=== PATIENT | male | born 1950 | race Caucasian/White ===

== ENCOUNTER → 2018-09-28 13:00 | Outpatient (CLI) | payer OTHER, SELFPAY ==
--- NOTE | 2018-09-28 | DI.RAD.S_ITS ---
PROCEDURE: XR SACRUM COCCYX MIN 2V INDICATIONS: Sacrococcygeal disorders, not elsewhere classified TECHNIQUE: 3 views of the sacrum and coccyx acquired. COMPARISON: None. FINDINGS: Bones: No fractures or dislocations. Mild symmetric SI joint degenerative changes. Moderate degenerative disc and facet disease involving the imaged inferior lumbar spine. Soft tissues: Visualized bowel gas pattern is normal. Multiple pelvic phleboliths. IMPRESSION: Mild symmetric sacroiliac joint degenerative changes with moderate degenerative changes of the imaged lower lumbar spine. Dictated by: Isaac Bassett [facility] Interpreted: Cirilo Chahal MD on 09/28/2018 at 14:16 Approved by: Cirilo Chahal M.D. on 09/28/2018 at 21:33
== END ==
PROVIDERS: PCP Family Medicine; Visit Provider Family Medicine
DX: M53.3 Sacrococcygeal disorders, not elsewhere classified (principal); M47.818 Spondylosis without myelopathy or radiculopathy, sacral and sacrococcygeal region; M47.816 Spondylosis without myelopathy or radiculopathy, lumbar region
CPT/HCPCS: 72220

== ENCOUNTER → 2020-10-08 09:01 | Outpatient (CLI) | payer MEDICARE, OTHER, SELFPAY ==
--- NOTE | 2020-10-08 | DI.RAD.S_ITS ---
PROCEDURE: XR LUMBAR SPINE 2-3V INDICATIONS: LUMBAR PAIN WITH RADIATION DOWN RIGHT LEG TECHNIQUE: 3 views of the lumbar spine were acquired. COMPARISON: None. FINDINGS: Bones: No fracture. Levoscoliosis. Multilevel degenerative endplate sclerosis and spurring. Diffuse facet arthropathy. Grade 1 anterolisthesis of L4 on L5. Severe narrowing of the L3-L4 disc space. Mild narrowing of the L4-L5 disc space. Soft tissues: Overlying bowel gas pattern is normal. No suspicious soft tissue calcifications. IMPRESSION: Severe multilevel lumbar spondylosis and facet arthropathy Levoscoliosis. Grade 1 anterolisthesis of L4 on L5. Dictated by: Stan Zaragoza M.D. on 10/08/2020 at 13:21 Approved by: Stan Zaragoza M.D. on 10/08/2020 at 13:23
--- NOTE | 2020-10-08 | DI.MRI.S_ITS ---
PROCEDURE: MR LUMBAR SPINE WO/W CON INDICATIONS: LOW BACK PAIN TECHNIQUE: Noncontrast sagittal T1 spin echo and T2 fast spin echo, sagittal STIR, axial T1 and T2 fast spin echo through the lumbar spine. In cases with scoliosis, additional coronal T2 fast spin echo may be performed. After the administration of contrast, sagittal and axial T1 spin echo with fat saturation through the lumbar spine. COMPARISON: Non FINDINGS: Image quality: Excellent. Alignment and curvature: No plain films are available for comparison, for numbering purposes. Thus, for the purposes of this examination, 5 lumbar type vertebral bodies will be presumed, as denoted on the montage panel. This should be confirmed and correlated with plain films, prior to any lumbar spinal intervention. There is mild grade 1 retrolisthesis of L1 on L2, L2 on L3, and L3 on L4. Mild grade 1 anterolisthesis of L4 on L5. Mild grade 1 retrolisthesis of L5 on S1. Mild diffuse leftward curvature of the lower lumbar spine. Marrow: Marrow is of normal overall signal. No acute vertebral body compression fractures. No suspicious marrow enhancement. Mild reactive signal within the endplates adjacent to the T12-L1, L1-L2, L2-L3, L3-L4, and L4-L5 intervertebral discs. Spinal cord: Conus medullaris terminates at the mid L1 level. Visualized spinal cord demonstrates normal signal, without suspicious enhancement. Paraspinous soft tissues: No paravertebral masses or abnormal enhancement. L1-L2: Mild disc desiccation and diffuse disc bulge. Mild facet and ligamentum flavum hypertrophy. Mild epidural lipomatosis. Mild canal stenosis. Moderate subarticular foraminal stenosis bilaterally. L2-L3: Moderate disc height loss and desiccation. Moderate diffuse disc bulge. Mild facet and ligamentum flavum hypertrophy. Mild epidural lipomatosis. Severe canal stenosis. Moderate bilateral foraminal stenosis. L3-L4: Moderate disc height loss and desiccation. Moderate diffuse disc bulge. Mild facet and ligamentum flavum hypertrophy. Moderate epidural lipomatosis. Severe canal stenosis. Moderate bilateral foraminal stenosis. L4-L5: Mild disc height loss. Moderate disc desiccation. Moderate diffuse disc bulge with superimposed right paracentral disc extrusion which extends superiorly within the lateral recess. Moderate facet and ligamentum flavum hypertrophy. Mild epidural lipomatosis. Severe canal stenosis. Severe right and moderate left foraminal stenosis. Right L4 nerve root compression. L5-S1: Mild disc height loss and desiccation. Mild diffuse disc bulge. Mild bilateral facet hypertrophy. Mild canal stenosis. Moderate left and mild right foraminal stenosis. IMPRESSION: 1. Multilevel degenerative disc and facet disease, as well as ligamentum flavum hypertrophy and epidural lipomatosis. 2. Multilevel canal stenoses, worst at L2-L3, L3-L4, and L4-L5, where there are severe canal stenosis. 3. Multilevel foraminal stenosis, worst at L4-L5 on the right where there is associated intraforaminal nerve root compression. 4. 5 lumbar type vertebral bodies were presumed for the current report. Plain films of the lumbar spine are recommended for confirmation, prior to any lumbar spinal intervention. Dictated by: Radha Norman M.D. on 10/08/2020 at 13:28 Approved by: Radha Norman M.D. on 10/08/2020 at 13:32
== END ==
PROVIDERS: PCP Family Medicine; Referring Provider Physician Assistant; Visit Provider Physician Assistant
DX: M54.5 Low back pain (principal); M51.36 Other intervertebral disc degeneration, lumbar region; M51.37 Other intervertebral disc degeneration, lumbosacral region; M48.061 Spinal stenosis, lumbar region without neurogenic claudication; M48.07 Spinal stenosis, lumbosacral region; E88.2 Lipomatosis, not elsewhere classified
CPT/HCPCS: 72100; 72158

== ENCOUNTER → 2021-01-31 10:31 | Outpatient (CLI) | payer MEDICARE, OTHER, SELFPAY | PROVIDERS: PCP Family Medicine; Visit Provider Physician Assistant Medical | DX: N39.0 Urinary tract infection, site not specified (principal) | CPT/HCPCS: 87086 ==

== ENCOUNTER → 2021-05-27 11:15 | Outpatient (CLI) | payer MEDICARE, OTHER, SELFPAY ==
[2021-05-27 20:20] LABS: COVID19 - ORCAS (NP or Nasal) Negative (Negative)
== END ==
PROVIDERS: PCP Family Medicine; Visit Provider Physician Assistant
DX: Z20.822 Contact with and (suspected) exposure to COVID-19 (principal)
CPT/HCPCS: C9803; U0003

== ENCOUNTER → 2021-06-06 15:29 | Outpatient (CLI) | payer MEDICARE, OTHER, SELFPAY ==
--- NOTE | 2021-06-06 15:32 | DI.MRI.S_ITS ---
PROCEDURE: MR LUMBAR SPINE WO CON INDICATIONS: RADICULOPATHY,LUMBAR REGION TECHNIQUE: Noncontrast sagittal T1 spin echo and T2 fast echo, sagittal STIR, axial T1 and T2 fast spin echo through the lumbar spine. In cases with scoliosis, additional coronal T2 fast spin echo may be performed. COMPARISON: None. FINDINGS: Image quality: Excellent. Alignment and Curvature: Convex left thoracolumbar scoliosis noted. Bone Marrow: Mild degenerative endplate changes noted particularly at L3-4 Spinal Cord: Conus medullaris terminates at the L1 level. Visualized cord demonstrates normal signal and size. Paraspinous Soft Tissues: No paravertebral masses. T12-L1: Mild disc height loss and circumferential disc bulge without central or foraminal stenosis. L1-L2: Disc height is preserved. Hypertrophic facet joints present. No central or foraminal stenosis. L2-L3: Mild disc height loss and circumferential disc bulge combines with ligamentum flavum laxity to result in moderate central and moderate bilateral foraminal stenosis greater on the right. L3-L4: Moderate disc height loss and degenerative endplate changes with circumferential disc bulge, hypertrophic facet joints and ligamentum flavum laxity combined result in moderate central stenosis, narrowing the AP diameter of the thecal sac to 7 mm. Moderate bilateral foraminal stenosis greater on the right. L4-L5: Mild disc height loss and circumferential disc bulge combines with ligamentum flavum laxity and hypertrophic facet joints result in severe central stenosis narrowing the AP diameter of the thecal sac to 6 mm. There is moderate left and severe right foraminal stenosis. L5-S1: Disc height is preserved. Mild facet hypertrophy. Moderate left and no right foraminal stenosis present. IMPRESSION: 1. Multilevel degenerative disc disease and arthropathy resulting in varying degrees of central and foraminal stenosis including severe central and right foraminal stenosis at L4-5. 2. Degenerative thoracolumbar levoscoliosis Approved by: Rojelio Gray M.D. on 06/06/2021 at 17:21
== END ==
PROVIDERS: PCP Family Medicine; Referring Provider Physician Assistant; Visit Provider Physician Assistant
DX: M51.16 Intervertebral disc disorders with radiculopathy, lumbar region (principal); M47.26 Other spondylosis with radiculopathy, lumbar region; M48.061 Spinal stenosis, lumbar region without neurogenic claudication; M41.85 Other forms of scoliosis, thoracolumbar region
CPT/HCPCS: 72148

== ENCOUNTER → 2021-09-10 13:24 | Outpatient (CLI) | payer MEDICARE, OTHER, SELFPAY ==
[2021-09-10 19:58] LABS: Prostate Specific Antigen 3.46 ng/mL (0.10-4.00)
== END ==
PROVIDERS: PCP Family Medicine; Visit Provider Specialist
DX: R97.20 Elevated prostate specific antigen [PSA] (principal); R39.9 Unspecified symptoms and signs involving the genitourinary system
CPT/HCPCS: 84153

== ENCOUNTER → 2022-01-08 08:02 | Outpatient (CLI) | payer MEDICARE, OTHER, SELFPAY ==
[2022-01-08 19:02] LABS: Add Manual Diff / Slide Review NO; Basophils Absolute Auto 0 /uL (0-100); Basophils Percent Auto 0.6 % (0-2); Eosinophils Absolute Auto 300 /uL (0-450); Eosinophils Percent Auto 3.8 % (2-4); Hematocrit 40.4 % (41-53); Hemoglobin 13.8 g/dL (13.5-17.5); Lymphocytes Absolute Auto 1600 /uL (1100-4500); Lymphocytes Percent Auto 23.3 % (25-40); Mean Corpuscular HGB Conc 34.2 % (30-36); Mean Corpuscular Hemoglobin 31.7 PG (26-34); Mean Corpuscular Volume 92.8 fL (80-100); Monocytes Absolute Auto 700 /uL (0-900); Monocytes Percent Auto 10.1 % (3-14); Neutrophils Absolute Auto 4100 /uL (1500-7000); Neutrophils Percent Auto 62.2 % (50-75); Platelet Count 220 X10^3/uL (150-400); Red Blood Cell Count 4.35 X10^6/uL (4.5-5.9); Red Cell Distribution Width 13.1 % (11.6-14.8); White Blood Cell Count 6.7 X10^3/uL (4.5-11.0)
[2022-01-08 19:16] LABS: Alanine Aminotransferase 20 IU/L (<50); Albumin 3.7 g/dL (3.5-5.0); Albumin Globulin Ratio 1.3 (1.0-2.8); Alkaline Phosphatase 79 U/L (38-126); Aspartate Aminotransferase 30 IU/L (17-59); BUN Creatinine Ratio 19.6 (6-22); Bilirubin Total 0.6 mg/dL (0.2-1.3); Blood Urea Nitrogen 22 mg/dL (9-20); Calcium 8.4 mg/dL (8.4-10.2); Carbon Dioxide 29 mmol/L (22-32); Chloride 106 mmol/L (98-107); Cholesterol 182 mg/dL (140-199); Estimated Glomerular Filt Rate > 60.0 mL/min (>60); Globulin 2.8 g/dL (1.7-4.1); Glucose 112 mg/dL (80-110); HDL Cholesterol 45 mg/dL (40-60); HEMOLYSIS < 15 (0-50); LDL Cholesterol Calculated 122 mg/dL (<100); Potassium 4.2 mmol/L (3.4-5.1); Sodium 140 mmol/L (137-145); Total Protein 6.5 g/dL (6.3-8.2); Triglycerides 73 mg/dL (35-150)
== END ==
PROVIDERS: PCP Family Medicine; Visit Provider Family Medicine
DX: R31.21 Asymptomatic microscopic hematuria (principal); N52.9 Male erectile dysfunction, unspecified; I10 Essential (primary) hypertension; Z00.00 Encounter for general adult medical examination without abnormal findings
CPT/HCPCS: 80053; 80061; 85025

== ENCOUNTER 2022-02-17 18:41 | Observation (INO) | payer MEDICARE, OTHER, SELFPAY ==
[2022-02-17 18:49] VITALS: BP 162/83; PULSE 82; RESP 18; TEMP 36.6; O2SAT 99; BMI 29.9
[2022-02-17 20:00] LABS: COVID19 -Nasal RAPID Negative (Negative)
[2022-02-17] MEDS: HYDROCODONE/ACET 5/325 TABLET 1 TAB PO (21:04)
--- NOTE | 2022-02-17 21:33 | ED_ITS ---
HPI - Extremity Injury (Lower) General Chief Complaint: Extremity Injury, Lower Stated Complaint: RIGHT FOOT INJURY Time Seen by Provider: 02/17/22 20:34 Source: patient and family Mode of arrival: Wheelchair Limitations: no limitations History of Present Illness HPI Narrative: This is a 71-year-old man on amlodipine and Flomax who presents for fracture of the 1st metatarsal with wound on his right foot. Patient states they were moving a granite step when it fell to the ground. Patient jumped out of the way but it rolled onto his foot. Likely weighs up to 1000lbs. Patient states tetanus should be up-to-date in the last 5 years. He denies any numbness or tingling. He has pain at the site. He had a shot for something to relax him at the [facility]. They did an x-ray there and referred him here. Patient has continued to have oozing and bleeding from the site. He has not any blood thinners. Related Data Previous Rx's Medication Instructions Recorded amlodipine 2.5 mg tablet 2.5 mg PO BID #180 tab 12/23/21 tamsulosin 0.4 mg capsule 0.4 mg PO BEDTIME #90 cap 12/23/21 Allergies Allergy/AdvReac Type Severity Reaction Status Date / Time No Known Drug Allergies Allergy Verified 02/17/22 18:54 Review of Systems Review of Systems ROS Unobtainable: All systems reviewed & are unremarkable except as noted in HPI and below Patient History Medical History BPH w urinary obs/LUTS Chicken pox Elevated PSA Encounter for well adult exam without abnormal findings Erectile dysfunction Foot trauma Family History Father Congestive heart failure Mother Stroke Social History household members: spouse and children Smoking Status: Never smoker alcohol intake: never Smoking Status: Never smoker alcohol intake frequency: 0-2 drinks per day Substance Use Type: does not use Exam Narrative Exam Narrative: GENERAL: Alert and oriented x three, male in moderate distress. HEENT: Head normocephalic, atraumatic, EOMI, pupils reactive, face symmetric, moist mucous membranes NECK: Supple, full range of motion CARDIOVASCULAR: Regular rate and rhythm without murmurs, rubs or gallops. RESPIRATORY: Breath sounds equal bilaterally, no wheezes rales or rhonchi. ABDOMEN: Soft, nontender. Normoactive bowel sounds all 4 quadrants. No guarding or rebound, rigidity, no mass EXTREMITIES: Patient has a on the dorsum of the right foot with two 0.5cm puncture bravo that are actively bleeding when pressure is removed, no arterial or pulsatile bleeding appreciated. Stops easily with direct light pressure. Patient has significant hematoma over the dorsum of the foot. He has sensation to light touch in all 5 toes with cap refill less than 2 seconds. Patient has sensation throughout the foot otherwise. Able to flex and extend toes although uncomfortable. Normal range of motion of upper leg and at knee, no clubbing or edema of upper leg.. Neurovascularly intact NEUROLOGICAL: Cranial nerves II through XII grossly intact. Moving all extremities SKIN: Warm, dry, no petechiae, no rashes or lesions otherwise noted. Initial Vital Signs Initial Vital Signs: Vital Signs Temperature 97.9 F 02/17/22 18:49 Pulse Rate 82 02/17/22 18:49 Respiratory Rate 18 02/17/22 18:49 Blood Pressure 162/83 H 02/17/22 18:49 Pulse Oximetry 99 02/17/22 18:49 Course Orders Ordered: ED Orders 02/17/22 21:24 CMP [Comprehensive Metabolic Panel] Stat Complete Blood Count AUTO DIFF Stat 02/17/22 22:08 COVID19 -Nasal RAPID/Pre-Proc Stat Acetaminophen (Acetaminophen 325 Mg Tablet) 975 mg PO TID MELONIE Sodium Chloride (Normal Saline 0.9%) 1,000 mls @ 125 mls/hr IV CONT MELONIE Last Admin: 02/18/22 01:36 Dose: 125 mls/hr Documented by: MARGIE Morphine Sulfate (Morphine 2 Mg/Ml Inj) 2 mg IV Q2HR PRN PRN Reason: Pain, Moderate (4-6) Last Admin: 02/18/22 02:17 Dose: 2 mg Documented by: Admin: 02/17/22 23:26 Dose: 2 mg Documented by: YO Ondansetron HCl (Ondansetron 4 Mg/2 Ml Inj) 4 mg IV Q6HR PRN PRN Reason: Nausea And Vomiting Ondansetron HCl (Ondansetron 4 Mg Odt) 4 mg SL Q4HR PRN PRN Reason: Nausea Oxycodone HCl (Oxycodone Ir 5 Mg Tablet) 10 mg PO Q3HR PRN PRN Reason: Pain, Severe (7-10) Last Admin: 02/18/22 01:36 Dose: 10 mg Documented by: MARGIE Discontinued Medications Hydrocodone Bitart/Acetaminophen (Hydrocodone/Acet 5/325 Tablet) 1 tab PO NOW ONE Stop: 02/17/22 21:00 Last Admin: 02/17/22 21:04 Dose: 1 tab Documented by: SHERWIN Cefazolin Sodium/Dextrose (Cefazolin 2 Gm/20 Ml Syringe) 2 gm IV NOW ONE Stop: 02/17/22 22:09 Last Admin: 02/17/22 22:50 Dose: 2 gm Documented by: YO Miles Consultation #1: Dr. Sosa, discussed patient has small wound but there is an obvious fragment on his imaging I am unable to palpated at the wound but seems to be at that site. He does have a fracture of the 1st metatarsal which is displaced. It is open fracture secondary to his wound. Patient given Ancef 2 g, tetanus up-to-date per patient and after speaking with Dr. Rodgers plan for OR in the morning. Discussed patient does have a large hematoma but skin appears intact and viable otherwise. Vital Signs Vital signs: Vital Signs - 8 hr 02/17/22 18:49 Temperature 97.9 F Pulse Rate 82 Respiratory Rate 18 Blood Pressure 162/83 H Pulse Oximetry 99 MDM - Extremity Injury (Lower) Lab Data Result diagrams: 02/17/22 21:24 02/17/22 21:24 Labs: Lab Results 02/17/22 02/17/22 02/17/22 Range/Units 19:39 21:24 21:24 WBC 9.5 (4.5-11.0) X10^3/uL RBC 4.44 L (4.5-5.9) X10^6/uL Hgb 14.1 (13.5-17.5) g/dL Hct 41.2 (41-53) % MCV 92.7 (80-100) fL MCH 31.7 (26-34) PG MCHC 34.1 (30-36) % RDW 13.0 (11.6-14.8) % Plt Count 227 (150-400) X10^3/uL Neut % (Auto) 70.0 (50-75) % Lymph % (Auto) 19.2 L (25-40) % [place] % (Auto) 8.2 (3-14) % Eos % (Auto) 1.9 L (2-4) % Baso % (Auto) 0.7 (0-2) % Neut # (Auto) 6700 (4678-4611) /uL Lymph # (Auto) 1800 (6096-0496) /uL [place] # (Auto) 800 (0-900) /uL Eos # (Auto) 200 (0-450) /uL Baso # (Auto) 100 (0-100) /uL Sodium 142 (137-145) mmol/L Potassium 3.8 (3.4-5.1) mmol/L Chloride 107 (98-107) mmol/L Carbon Dioxide 28 (22-32) mmol/L BUN 28 H (9-20) mg/dL Creatinine 1.08 (0.66-1.25) mg/dL Estimated GFR > 60 (>60) mL/min BUN/Creatinine Ratio 25.9 H (6-22) Glucose 96 (80-110) mg/dL Calcium 8.4 (8.4-10.2) mg/dL Total Bilirubin 0.5 (0.2-1.3) mg/dL AST 28 (17-59) IU/L ALT 16 (<50) IU/L Alkaline Phosphatase 73 (38-126) U/L Total Protein 7.1 (6.3-8.2) g/dL Albumin 4.0 (3.5-5.0) g/dL Globulin 3.1 (1.7-4.1) g/dL Albumin/Globulin Ratio 1.3 (1.0-2.8) SARS-CoV-2 (PCR) Negative (Negative) Imaging Data Extremity x-ray #1: Radiologist's Impression: [address] [address] XRay Report Signed Patient: Uvaldo Davis MR#: [id number] : 1950 Acct:[id number] Age/Sex: 71 / M Date of Service: 02/17/22 [facility] Accession Number: [id number] ?? Procedure: XR foot RT min 3V Ordering Provider: Kit Roman D.O. PROCEDURE:? XR FOOT RT MIN 3V ? INDICATIONS:? Trauma to foot, pain 1st MT ? TECHNIQUE:? 3 views of the foot were acquired.? ? COMPARISON:? None. ? FINDINGS:? ? Bones:? There is a moderately displaced comminuted fracture of the mid/proximal aspect of the 1st metatarsal. ? Soft tissues:? No tibiotalar joint effusion.? Achilles tendon appears normal.? ? ? IMPRESSION:? 1st metatarsal fracture. ? ? Dictated by: Radha Norman M.D. on 02/17/2022 at 15:46 ? ? Approved by: Radha Norman M.D. on 02/17/2022 at 15:46? MDM Narrative Medical decision making narrative: This is a 71-year-old male with a grain it stepped that rolled or fell partially on his foot. Patient has 1st metatarsal fracture which is displaced with a fragment which appears to have punctured the skin and patient has active bleeding when pressure is not applied although does not appear to be arterial in is easily stopped with direct pressure. Wound was irrigated here in the department, patient was given a dose of IV antibiotics. Tetanus is up to date. Case was discussed with Orthopedic surgery who plans to take patient to the OR 1st thing in the morning. Patient's pain has been fairly easily controlled initially with oral antibiotics and then given additional dose of IV medication. Discharge Plan Departure Patient Disposition: Admitted as Observation Clinical Impression: Open fracture of metatarsal bone Admit Date/Time: 02/17/22 23:25 Admit Provider: Helen Sosa
[2022-02-17 21:41] LABS: Add Manual Diff / Slide Review NO; Basophils Absolute Auto 100 /uL (0-100); Basophils Percent Auto 0.7 % (0-2); Eosinophils Absolute Auto 200 /uL (0-450); Eosinophils Percent Auto 1.9 % (2-4); Hematocrit 41.2 % (41-53); Hemoglobin 14.1 g/dL (13.5-17.5); Lymphocytes Absolute Auto 1800 /uL (1100-4500); Lymphocytes Percent Auto 19.2 % (25-40); Mean Corpuscular HGB Conc 34.1 % (30-36); Mean Corpuscular Hemoglobin 31.7 PG (26-34); Mean Corpuscular Volume 92.7 fL (80-100); Monocytes Absolute Auto 800 /uL (0-900); Monocytes Percent Auto 8.2 % (3-14); Neutrophils Absolute Auto 6700 /uL (1500-7000); Platelet Count 227 X10^3/uL (150-400); Red Blood Cell Count 4.44 X10^6/uL (4.5-5.9); White Blood Cell Count 9.5 X10^3/uL (4.5-11.0)
[2022-02-17 21:45] LABS: Alanine Aminotransferase 16 IU/L (<50); Albumin Globulin Ratio 1.3 (1.0-2.8); Alkaline Phosphatase 73 U/L (38-126); Aspartate Aminotransferase 28 IU/L (17-59); BUN Creatinine Ratio 25.9 (6-22); Bilirubin Total 0.5 mg/dL (0.2-1.3); Blood Urea Nitrogen 28 mg/dL (9-20); Calcium 8.4 mg/dL (8.4-10.2); Carbon Dioxide 28 mmol/L (22-32); Chloride 107 mmol/L (98-107); Estimated Glomerular Filt Rate > 60 mL/min (>60); Globulin 3.1 g/dL (1.7-4.1); Glucose 96 mg/dL (80-110); HEMOLYSIS < 15 (0-50); Potassium 3.8 mmol/L (3.4-5.1); Sodium 142 mmol/L (137-145); Total Protein 7.1 g/dL (6.3-8.2)
[2022-02-17] MEDS: CEFAZOLIN 2 GM/20 ML SYRINGE IV (22:50)
[2022-02-17] MEDS: MORPHINE 2 MG/ML INJ IV (23:26)
[2022-02-17 23:30] VITALS: BP 158/67; PULSE 69; RESP 18; O2SAT 97
[2022-02-18] VITALS (16 sets, daily range): BP systolic 107–139; BP diastolic 64–80; PULSE 54–72; RESP 10–19; TEMP 35.9–36.6; O2SAT 90–99; BMI 30.7
[2022-02-18] MEDS: SODIUM CHLORIDE 0.9% 1,000 ML 125 ML IV (01:36)
[2022-02-18] MEDS: OXYCODONE IR 5 MG TABLET 10 MG PO (01:36)
[2022-02-18] MEDS: MORPHINE 2 MG/ML INJ IV (02:17)
--- NOTE | 2022-02-18 05:35 | PM.HP.1 ---
History of Present Illness History of Present Illness Date Patient Seen: 02/18/22 Time Patient Seen: 05:36 Date of Onset of Symptoms: 02/17/22 Chief complaint: RIGHT FOOT INJURY Narrative: 71-year-old male lives on [facility]. Foot crush injury when a large rock approximately 5415-7796 lb was being unloaded from a tracking got away from them and rolled onto his right foot. Denies other injuries then foot. Had immediate pain and swelling. Seen intermittently at the [facility] car and x-ray was taken. Then took the [facility] to [place]. Injury reportedly happened around 2:00 p.m.. Did not arrive and to [place] and into the ER for orthopedic consult until 11:00 p.m.. Patient had been given doses Ancef. Open fracture 1st metatarsal. No blisters or signs of compartment syndrome based on ED consult. Pain was controlled. Only medications are amlodipine and tamsulosin. Patient History Medical History BPH w urinary obs/LUTS Chicken pox Elevated PSA Encounter for well adult exam without abnormal findings Erectile dysfunction Foot trauma Family & Social History Family History Father Congestive heart failure Mother Stroke Social History: household members spouse,children Prior Living Arrangements House Safety & Behavioral: Feels Safe in Current Yes Environment Been Physically Hurt or No Threatened By a Person Tobacco & Substance use: Smoking Status Never smoker alcohol intake never alcohol intake frequency 0-2 drinks per day Substance Use Type does not use Meds Home Medications and Allergies Home Medications Medication Instructions Recorded Confirmed Type amlodipine 2.5 mg tablet 2.5 mg PO BID #180 tab 12/23/21 02/18/22 Rx tamsulosin 0.4 mg capsule 0.4 mg PO BEDTIME #90 cap 12/23/21 02/18/22 Rx Allergies Allergy/AdvReac Type Severity Reaction Status Date / Time No Known Drug Allergies Allergy Verified 02/17/22 18:54 Review of Systems Review of Systems Narrative: Denies fevers chills nausea vomiting numbness or tingling. Endorses pain in the right foot. Denies other injury. Denies headache. Denies ROS: Yes All systems reviewed with the patient and are negative except as otherwise documented Exam Vital Signs (past 8 hours): - 02/17/22 23:30 02/18/22 01:11 02/18/22 05:07 Temperature 97.9 F 96.9 F L Pulse Rate 69 59 L 57 L Respiratory Rate 18 16 16 Blood Pressure 158/67 H 139/79 137/76 Pulse Oximetry 97 97 98 Oxygen Delivery Method Room Air Narrative Exam Narrative: Alert oriented male sitting up in bed. No acute distress. HEENT exam normocephalic atraumatic Respiratory exam unlabored on room air. Lungs clear to auscultation bilaterally CV exam regular rate and rhythm Musculoskeletal exam moving bilateral upper extremities no deformity or tenderness. Left lower extremity moves fully 5/5 motor no swelling deformity or pain Right lower extremity demonstrates dressing over midfoot and forefoot. Mild swelling. No obvious blistering no erythema. Able to wiggle lesser toes and great toe. Brisk capillary refill. Calf is soft. Sensation grossly intact. Palpable posterior tibialis pulse. Objective Imaging Right foot x-ray: My impression: Three views right foot nonweightbearing 1st metatarsal shaft fracture with small area of comminution and dressing placement consistent with open fracture Radiologist's impression: 1st metatarsal fracture Labs Result Diagrams: 02/17/22 21:24 02/17/22 21:24 Labs: Laboratory Results - last 24 hr 02/17/22 02/17/22 02/17/22 19:39 21:24 21:24 WBC 9.5 RBC 4.44 L Hgb 14.1 Hct 41.2 MCV 92.7 MCH 31.7 MCHC 34.1 RDW 13.0 Plt Count 227 Neut % (Auto) 70.0 Lymph % (Auto) 19.2 L Saline % (Auto) 8.2 Eos % (Auto) 1.9 L Baso % (Auto) 0.7 Neut # (Auto) 6700 Lymph # (Auto) 1800 Saline # (Auto) 800 Eos # (Auto) 200 Baso # (Auto) 100 Sodium 142 Potassium 3.8 Chloride 107 Carbon Dioxide 28 BUN 28 H Creatinine 1.08 Estimated GFR > 60 BUN/Creatinine Ratio 25.9 H Glucose 96 Calcium 8.4 Total Bilirubin 0.5 AST 28 ALT 16 Alkaline Phosphatase 73 Total Protein 7.1 Albumin 4.0 Globulin 3.1 Albumin/Globulin Ratio 1.3 SARS-CoV-2 (PCR) Negative Assessment & Plan Assessment and plan (1) Open fracture of metatarsal bone: Problem details: Open fracture right 1st metatarsal with angulation. Requires irrigation debridement and stabilization. On scheduled IV antibiotics. Status: Acute Plan: Plan for OR for I and D open fracture and fixation. Discussed risk for nonunion, malunion, infection, persistent pain, wound healing problems, need for additional surgery either regarding the bone or soft tissues. And toe-touch down for balance only approximately 6 weeks for bone healing. The risks and benefits of the procedure have been discussed with the patient even opportunity to ask questions. The risks of surgery include but are not limited to infection, malunion, nonunion, persistence of pain, damage to nerves and blood vessels, posttraumatic arthritis, DVT, PE, cardiopulmonary complications and . The patient expressed a thorough understanding of the risks and benefits of surgery and has elected to proceed. Consent was signed. Patient has no personal or family history of venous blood clots. Will do aspirin for DVT prophylaxis postoperatively. IV antibiotics while in the hospital. 5 Day course of Keflex on discharge. (2) Crush injury of foot: Problem details: Crush injury to right foot 2207-5672 lb rock. No signs of compartment syndrome. Moderate swelling no blisters. Open fracture will require of debridement and stabilization as mentioned above. Discussed that evolving soft tissue injury may require observation, wound care or further debridement/surgery Status: Acute Plan See above COVID-19 COVID-19 status: Negative Time Spent With Patient Time with patient: 30 to 49 minutes with 50% spent counseling/coordinating care Critical Care time: I spent a total of [] minutes of critical care time on this patient's care today; this time is exclusive of procedural time. Quality VTE Deep Vein Thrombosis/Pulmonary Embolism Present on Admission: No
--- NOTE | 2022-02-18 05:51 | PC.ADMIT ---
[facility] 262 Admission Note: Pt arrived to unit in no apparent cardiovascular or respiratory distress, alert and oriented, able to scoot in bed. Pt Right foot w/ crush injury, wrapped in stretch gauze and coban. Able to wiggle toes and rotate ankle, sensation intact on toes, cap refill <2 sec. Contacted MD for orders. The patient,Uvaldo Davis,71 y/o, was given written information regarding hospital policies, unit procedures and contact persons. Patient's smoking status: Never smoker. Vital Signs - 8 hr 02/17/22 23:30 02/18/22 01:11 02/18/22 05:07 Temperature 97.9 F 96.9 F L Pulse Rate 69 59 L 57 L Respiratory Rate 18 16 16 Blood Pressure 158/67 H 139/79 137/76 Pulse Oximetry 97 97 98
--- NOTE | 2022-02-18 05:58 | PC.NURSE ---
Pt off floor for OR at 0550.
[2022-02-18] MEDS: CEFAZOLIN 2 GM/20 ML SYRINGE IV ×2 (06:25→13:19)
--- NOTE | 2022-02-18 06:42 | SUR.OPER ---
Supine on padded OR bed, head on pillow, arms secured on padded arm boards at <90 degrees abduction, legs uncrossed, safety belt at waist, tape over blanket over lower left leg, right leg draped free with blanket bump under calf.
[2022-02-18] MEDS: BUPIVACAINE 0.25% (PF) 30 ML, EPINEPHrine 0.15 MG INJ (06:49)
--- NOTE | 2022-02-18 07:34 | PM.OP.1 ---
Operative Date/Time/Diagnoses Date of procedure: 02/18/22 Time of procedure: 06:30 Pre-op diagnosis: Open right 1st metatarsal fracture Crush injury right foot Post-op diagnosis: same Procedure & Clinicians Procedure: 1. Open reduction internal fixation right 1st metatarsal fracture CPT code 37686 2. Debridement open fracture CPT code 67820 Same procedure as scheduled: Yes Indications: Patient is a 71-year-old male and a 1200 lb rock fell on his right foot crushing it and sustained an open fracture of the 1st metatarsal. He was indicated for irrigation debridement open reduction internal fixation. The risks and benefits of the procedure have been discussed with the patient even opportunity to ask questions. The risks of surgery include but are not limited to infection, malunion, nonunion, persistence of pain, damage to nerves and blood vessels, need for additional procedures, wound healing problems, posttraumatic arthritis, DVT, PE, cardiopulmonary complications and . The patient expressed a thorough understanding of the risks and benefits of surgery and has elected to proceed. Consent was signed. Surgeon: Helen Sosa Click Yes if Unassisted: Yes Anesthesia Type: General and Local Operative Notes Findings: First metatarsal shaft open --with the comminution 1 fragment of vitalized cortical bone was excised. Fracture ends were delivered and debrided then the fracture was reduced and pinned with 3x 062 K-wires. There is an area of devitalized skin at the location of the open fracture this was ellipsed sized and excised Closure Type: primary Specimen(s): none sent Applied: implant(s) (062 K-wire x3) Estimated Blood Loss (mL): 5 Tourniquet time (min): 32 Procedure in detail: Patient was seen in the preoperative area the site of surgery was marked informed consent confirmed. He was brought back to the operating room by the anesthesia team positioned supine a general anesthetic was administered. All bony prominences well padded. An SCD was placed on contralateral lower extremity. Well-padded thigh tourniquet was placed on the operative extremity. The right lower extremities prepped and draped in standard sterile fashion. A formal time-out procedure was performed confirming the patient's side and site of surgery administration of appropriate preoperative antibiotic. All were in agreement. Attention turned the right lower extremity. Esmarch was used for exsanguination the tourniquet raised on the thigh to 250 mmHg. Attention was turned to the right foot this was swollen there were no blisters. There was some the ecchymosis around the lesser toes. There is a 1 cm open wound over the midshaft of the 1st metatarsal medially this was the bleeding hematoma blood. And there was crepitus palpated at the level of the fracture. A longitudinal incision ellipsed sizing the open wound and devitalized ecchymotic tissue in this immediate surrounding area was completed this brought me down to the 1st metatarsal bone. This was exposed. Fracture ends were exposed. There was a comminuted cortical fragment that was devitalized this was removed. Fracture ends were delivered and 3 L of irrigation was used for a debridement of the open fracture site. No foreign debris was demonstrated. Once this was completed the fracture was reduced and pinned with 062 K-wires x3. Alignment was checked on mini C-arm this achieved alignment in the AP and sagittal planes. Overall general rotation of the toe was anatomic. The pins were then bent and cut. The wound was closed in layered fashion 2-0 Vicryl and 2-0 and 3-0 nylon suture. This was able to be primarily approximated. The tourniquet was released prior to final closure there was hemostasis. Pin caps were placed. The bulky dressing with fluffs was completed and a posterior splint. The patient was woken from anesthesia and taken to recovery unit in good condition. There no immediate complications from this procedure. Complications: none Post-operative Condition: stable Disposition: PACU Plan for aftercare: Toe-touch down for balance on the right side otherwise nonweightbearing. Will have 5 days of oral antibiotics for infection prevention. Will follow-up in 1-2 weeks for a wound check. Sutures will stay in place 3-4 weeks. pins will stay in place at least 6 weeks. Anti nausea medication, pain medication and antibiotic have been [facility]
[2022-02-18] MEDS: ACETAMINOPHEN 325 MG TABLET 975 MG PO ×3 (07:54→14:29)
--- NOTE | 2022-02-18 08:04 | SUR.PHASEI ---
900ml LR infused in the OR
--- NOTE | 2022-02-18 08:04 | SUR.PHASEI ---
Report called to acute care. Patient awake, stable, tolerating PO well, denies pain
--- NOTE | 2022-02-18 08:13 | SUR.PHASEI ---
0904 patient to room 302, bed elevated as RN is working with the patient. VSS, SCD on, CMS stable. Stable.
[2022-02-18] MEDS: LACTATED RINGERS 1,000 ML 125 ML IV (08:26)
[2022-02-18] MEDS: AMLODIPINE 5 MG TABLET 2.5 MG PO (08:33)
[2022-02-18] MEDS: ASPIRIN EC 81 MG TABLET 325 MG PO (08:33)
--- NOTE | 2022-02-18 09:45 | PT.IIE ---
Current Diagnoses Fracture of unspecified metatarsal bone(s), unspecified foot, initial encounter for open fracture (02/17/22) Crushing injury of unspecified foot, initial encounter (02/17/22) Surgery Performed Operation Date: 02/18/22 06:00 <No data on this case meets the specified criteria> Operation Date: 02/18/22 06:00 Actual Procedures p ORIF Metatarsal Fracture with Irrigation and debridement - Helen Sosa MD Medical History (Last Reviewed 02/17/22 @ 22:24 by Charity Shah DO) BPH w urinary obs/LUTS Chicken pox Elevated PSA Encounter for well adult exam without abnormal findings Erectile dysfunction Foot trauma Physical Therapy Inpatient Evaluation/Re-Eval M1 PT/OT-IP Prior Functional Status Start: 02/18/22 13:01 Freq: NEEDED Status: Active Protocol: Document 02/18/22 09:45 AB (Rec: 02/18/22 13:14 AB [id number]) Medical Review Prior Functional Status Medical History Reviewed Yes Communication able to make needs known Mobility and Gait pt stated that he is independent with all mobilities and ambulation without AD Social History Household Members spouse,children Living Arrangements House Number of Floors (Floors) One Floor Number of Stairs To Enter/Railing? no steps to enter Home Environment Standard Height Toilet,Tub/ Shower Home Equipment Crutches,Hand Held Shower Additional Social History Comment pt works in construction M2 PT-IP Current Condition Start: 02/18/22 13:01 Freq: NEEDED Status: Active Protocol: Document 02/18/22 09:45 AB (Rec: 02/18/22 13:14 AB [email or web address]) Physical Therapy Current Condition Current Condition Evaluation Date 02/18/22 Treatment Diagnosis R 1st metatarsal fx s/p ORIF; difficulty in walking Onset Date 02/17/22 M3 PT-IP Subjective Start: 02/18/22 13:01 Freq: NEEDED Status: Active Protocol: Document 02/18/22 09:45 AB (Rec: 02/18/22 13:14 AB [id number]) Subjective Physical Therapy Visit Type Type Initial Evaluation Visit Start Time 09:45 Visit Stop Time 10:40 Total Visit Minutes 55 Number of [employer] Visits 0 Physical Therapy Visit Comments Patient Comments pt is agreeable to do PT; spouse in room Therapy Pain Assessment Pain When Pain Assessed At Rest Pain Present Pain Present Pain Reported Location Right Foot Intensity 3 Scale Used Numeric (0 - 10) Pain Management Techniques Distraction,Elevation, Modification of Treatment,Re- positioning,Timing of Activity with Medications M4 PT-IP Mobility and Gait Start: 02/18/22 13:01 Freq: NEEDED Status: Active Protocol: Document 02/18/22 09:45 AB (Rec: 02/18/22 13:14 AB [id number]) PT-Bed Mobility Assessment Supine to Sit Supine to Sit Standby Assistance PT-Transfer Assessment Sit to and From Stand Sit to and from Stand Contact Guard Assistance,1 Person Assistance Equipment Transfer Assistive Device Gait Belt,Front Wheeled Walker Orthotic/Prosthetic Devices or Brace: Yes Transfers Transfer Destination Chair Transfer Technique ambulated Transfer Ability Level of Assist Contact Guard Assistance, Minimal Assistance Comments Mobility Comments pt educated on RLE TTWB for balance only and NWB at other time. pt understood. spouse in room. pt completed supine to sit SBA . able to sit on EOB SBA. completed sit to stand CGA and cues. ambulated in room using FWW CGA to min A. Min A for turns and backing up on chair with (+) LOB x 2 requiring min A for recovery and cues for safety. pt has crutches at home and would like to try crutches. attempted sit to stand with use of crutches for standing position but unable to balance without assist. pt not safe with use of crutches at this time. caregiver training conducted. educated spouse on use of safety belt and how to assist pt. spouse was able to put safety belt on pt. and assisted pt with ambulatin in room using FWW. pt sat back on the chair. educated on safety and pacing. pt and spouse understood safety techniques and has no further concerns. spouse stated that she will be able to get a FWW and w/c for pt to use today. Gait Assessment Gait Gait Assistance Required: Contact Guard Assist,Minimum Assistance Distance (Feet) 40 Able to Maintain Weight Bearing Status Yes During Gait Assistive Devices Assistive Device Gait Belt,Front Wheeled Walker Orthotic/Prosthetic Devices or Brace: Yes Gait Deviations General Gait Pattern Decreased Stride Length, Decreased Feet Clearance Factors Limiting Gait Function Factors Limiting Gait Function Decreased Activity Tolerance, Decreased Sensation,Decreased Strength,Limited Range of Motion,Pain,Poor Balance,Poor Safety Awareness PT-Balance Assessment Sitting Balance and Reactions Static Sitting Balance Ability Good Dynamic Sitting Balance Ability Good Standing Balance and Reactions Static Standing Balance Ability Fair Dynamic Standing Balance Ability Fair Device Used FWW M5 PT-IP Objective Assessments Start: 02/18/22 13:01 Freq: NEEDED Status: Active Protocol: Document 02/18/22 09:45 AB (Rec: 02/18/22 13:14 AB [id number]) Orientation Orientation/Cognition Level of Alertness Alert Orientation Name,Age,Birthday,Month,Date, Year,Day of Week,Place, Situation Language Function Ability No Deficits Noted Safety Awareness Decreased Safety Awareness Memory Description No Deficits Noted Gross Range of Motion Lower Extremity ROM Assessment Right Impaired Impairments R ankle on soft cast Strength Lower Extremity Strength Assessment Right Impaired Ankle NT Sensation Assessment Sensation Gross Sensation Right LE Impaired Light Touch Impaired Proprioception (Position) Impaired Sensation Description Numbness Comments Sensation Comments still has slight numbness on R foot Muscle Tone Muscle Tone WNL Yes M6 PT-IP Treatment Start: 02/18/22 13:01 Freq: NEEDED Status: Active Protocol: Document 02/18/22 09:45 AB (Rec: 02/18/22 13:14 AB [email or web address]) Physical Therapy Treatment Education Education Provided Weight Bearing Status,Safety M7 PT-IP Assessment and Plan Start: 02/18/22 13:01 Freq: NEEDED Status: Active Protocol: Document 02/18/22 09:45 AB (Rec: 02/18/22 13:14 AB [email or web address]) PT Summary Assessment and Plan Potential Rehabilitation Potential Good Status of Condition at Evaluation Stable Summary Impairments Pain,ROM,Strength,Balance, Coordination,Sensation,Tone, Cognition,Bed Mobility, Transfers,Gait,Activity Tolerance Assessment Summary caregiver training conducted and spouse was able to assist pt with mobility wiht use of FWW. spouse will obtain FWW, w/c and tub transfer bench for pt to use. pt and spouse without further concerns. pt plans to go home today. Goals Bed Mobility Goal Independent Transfer Goal Independent,Front Wheeled Walker Gait Goal Independent,Front Wheel Walker Gait Distance 100 Days to Meet Goals 10 Frequency of Treatment Frequency Of Treatment Twice a Day Weight Bearing Status Weight Bearing Status Non-Weight Bearing Allowed Weight Bearing Amount (enter % per Dr. Salvador's post-op note: or #) (%) toe-touch down for balance on the right side otherwise nonweightbearing. Recommendations To Nursing Amount of Assist Needed 1 Person Assist Discharge Recommendations PT Discharge Recommendations Home with 03/05 Assist Available,Outpatient PT Equipment Needed for Home Before FWW, w/c Discharge Transportation Needs at Discharge Private Vehicle
[2022-02-18] MEDS: OXYCODONE IR 5 MG TABLET PO (14:30)
--- NOTE | 2022-02-18 14:40 | CM.DANOTE ---
Initial DCP Assessment Note Pt is a 71 yo female, resident of [facility], now POD 0 from ORIF Metatarsal Fracture with Irrigation and debridement by Dr Sosa PCP: Kit Roman Payer: [employer]ST[employer] [place] Reviewed chart, pt discussed in multidisciplinary rounds this morning. Therapy has cleared pt for return home w/family to assist and pt has planned for home, DC order from Ortho has already been initiated this morning. No needs expected from DC planning team although will remain available in case this changes today. GRIS Jackson
== END 2022-02-18 14:50 | disposition home or self-care (01) ==
LOC: ED 22:52 → AC 23:29
PROVIDERS: Admitting Provider Orthopaedic Surgery Foot and Ankle Surgery; Emergency Provider Emergency Medicine; PCP Family Medicine; Referring Provider Emergency Medicine; Visit Provider Orthopaedic Surgery Foot and Ankle Surgery
PROC: (CPT 28485; principal; 2022-02-18 06:00)
DX: S92.311B Displaced fracture of first metatarsal bone, right foot, initial encounter for open fracture (principal); W20.8XXA Other cause of strike by thrown, projected or falling object, initial encounter; Y93.H3 Activity, building and construction; S97.81XA Crushing injury of right foot, initial encounter; Z20.822 Contact with and (suspected) exposure to COVID-19
CPT/HCPCS: 28485; 36415; 80053; 85025; 87635; 94762; 96374; 96375; 96376; 97161; 97530; 99283; 99284; C9803; G0378; J0171; J0690; J1100; J2270; J2704; J3010

== ENCOUNTER → 2022-05-05 13:07 | Outpatient (CLI) | payer MEDICARE, OTHER, SELFPAY ==
[2022-02-18 00:29] VITALS: BMI 30.7
[2022-05-05 20:00] LABS: Add Manual Diff / Slide Review NO; Basophils Absolute Auto 100 /uL (0-100); Basophils Percent Auto 0.8 % (0-2); Eosinophils Absolute Auto 200 /uL (0-450); Eosinophils Percent Auto 3.5 % (2-4); Hematocrit 42.1 % (41-53); Hemoglobin 14.5 g/dL (13.5-17.5); Lymphocytes Absolute Auto 1800 /uL (1100-4500); Lymphocytes Percent Auto 27.7 % (25-40); Mean Corpuscular HGB Conc 34.4 % (30-36); Mean Corpuscular Hemoglobin 31.5 PG (26-34); Mean Corpuscular Volume 91.7 fL (80-100); Monocytes Absolute Auto 500 /uL (0-900); Monocytes Percent Auto 8.2 % (3-14); Neutrophils Absolute Auto 3900 /uL (1500-7000); Neutrophils Percent Auto 59.8 % (50-75); Platelet Count 233 X10^3/uL (150-400); Red Blood Cell Count 4.59 X10^6/uL (4.5-5.9); Red Cell Distribution Width 13.3 % (11.6-14.8); White Blood Cell Count 6.5 X10^3/uL (4.5-11.0)
[2022-05-05 20:13] LABS: C-Reactive Protein Quant < 0.5 mg/dL (<1.0)
[2022-05-05 20:27] LABS: Erythrocyte Sedimentation Rate 11 MM/HR (0-15)
== END ==
PROVIDERS: PCP Family Medicine; Visit Provider Orthopaedic Surgery Foot and Ankle Surgery
DX: Z01.812 Encounter for preprocedural laboratory examination (principal); R31.21 Asymptomatic microscopic hematuria
CPT/HCPCS: 85025; 85651; 86140

== ENCOUNTER → 2022-10-26 13:36 | Outpatient (CLI) | payer MEDICARE, OTHER, SELFPAY ==
[2022-02-18 00:29] VITALS: BMI 30.7
[2022-10-26 20:20] LABS: Vitamin D 25 Hydroxy (D3) 30.3 ng/mL (30.0-100.0)
== END ==
PROVIDERS: PCP Family Medicine; Visit Provider Orthopaedic Surgery Foot and Ankle Surgery
DX: E55.9 Vitamin D deficiency, unspecified (principal)
CPT/HCPCS: 82306

== ENCOUNTER → 2022-11-18 11:37 | Outpatient (CLI) | payer MEDICARE, OTHER, SELFPAY ==
[2022-02-18 00:29] VITALS: BMI 30.7
[2022-11-18 19:37] LABS: Cholesterol 219 mg/dL (140-199); Glucose 97 mg/dL (80-110); HDL Cholesterol 40 mg/dL (40-60); LDL Cholesterol Calculated 150 mg/dL (<100); Triglycerides 147 mg/dL (35-150)
[2022-11-18 20:07] LABS: Prostate Specific Antigen Scrn 4.41 ng/mL (0.1-4.0)
[2022-11-19 16:29] LABS: Hep C Virus Ab w/Reflex Quant NEGATIVE s/c (NEGATIVE)
== END ==
PROVIDERS: PCP Family Medicine; Visit Provider Family Medicine
DX: Z12.5 Encounter for screening for malignant neoplasm of prostate (principal); Z13.1 Encounter for screening for diabetes mellitus; N52.9 Male erectile dysfunction, unspecified; Z11.59 Encounter for screening for other viral diseases; Z13.220 Encounter for screening for lipoid disorders
CPT/HCPCS: 80061; 82947; 86803; G0103

== ENCOUNTER → 2022-12-16 09:00 | Outpatient (CLI) | payer MEDICARE, OTHER, SELFPAY ==
[2022-02-18 00:29] VITALS: BMI 30.7
--- NOTE | 2022-12-16 09:01 | DI.MRI.S_ITS ---
PROCEDURE: MR CERVICAL SPINE WO CON INDICATIONS: neck pain that radiates to back of head. Abn C-spine x-ray TECHNIQUE: Noncontrast sagittal T1 spin echo and T2 fast spin echo, sagittal STIR, foraminal oblique sagittal T2 fast spin echo, and axial gradient echo or T2 fast spin echo through the cervical spine. COMPARISON: [facility] ([facility]), CR, XR CERVICAL SPINE 2V OR 3V, 12/07/2022, 10:55. FINDINGS: Image quality: Excellent. Alignment and Curvature: There is normal bony alignment. Bone Marrow: C3-3 vertebral body marrow replacement noted with low T1 and elevated stir signal. Suggestion of trabecular thickening present laterally. No vertebral body collapse Spinal Cord: Visualized spinal cord has normal size and signal. No cerebellar tonsillar herniation. Paraspinous Soft Tissues: No paravertebral masses. Prevertebral soft tissues are normal in thickness. C2-C3: Normal appearance. C3-C4: Disc space narrowing and hypertrophic uncovertebral joints present. Mild central stenosis. No foraminal stenosis C4-C5: Disc space is preserved. Hypertrophic uncovertebral joints present. No central stenosis. No foraminal stenosis. C5-C6: Disc space narrowing and hypertrophic facet joints present. Posterior disc osteophyte complex is asymmetric to the left. Moderate central stenosis. There is severe left and right foraminal stenosis. C6-C7: Disc space narrowing with posterior disc osteophyte complex and hypertrophic facet joints results in [id number] central and mild bilateral foraminal stenosis C7-T1: Disc space narrowing present. No central or foraminal stenosis IMPRESSION: C2 vertebral body marrow replacement. While this may represent a lipid poor hemangioma, differential would be neoplasm. Consider follow-up nuclear medicine bone scan Multilevel degenerative disc disease and arthropathy associated varying degrees of central and foraminal stenosis including moderate central stenosis at C5-6 Approved by: Rojelio Gray M.D. on 12/16/2022 at 17:47
== END ==
PROVIDERS: PCP Family Medicine; Referring Provider Physician Assistant; Visit Provider Physician Assistant
DX: M50.322 Other cervical disc degeneration at C5-C6 level (principal); M47.812 Spondylosis without myelopathy or radiculopathy, cervical region; M48.02 Spinal stenosis, cervical region
CPT/HCPCS: 72141

== ENCOUNTER → 2023-01-06 10:14 | Outpatient (CLI) | payer MEDICARE, OTHER, SELFPAY ==
[2022-02-18 00:29] VITALS: BMI 30.7
--- NOTE | 2023-01-06 10:15 | DI.NM.S_ITS ---
PROCEDURE: NM BONE SCAN WHOLE BODY RADIOPHARMACEUTICAL: 21 mCi Tc-99m MDP IV. INDICATIONS: abnormal MRI 12/16/22 TECHNIQUE: Delayed whole-body scintigrams were obtained approximately 3-4 hours after intravenous injection of radiotracer. Anterior and posterior views were acquired from vertex to feet. Additional left and right oblique views of the spine were obtained. COMPARISON: [facility], MR, MR CERVICAL SPINE WO CON, 12/16/2022, 10:21. FINDINGS: Physiologic uptake is noted within the kidneys and bladder. There is increased uptake within the knees as well as small bones of the feet and shoulder girdles. Small punctate areas of uptake are noted within the spine most notably the lumbar spine. The area of abnormal signal at C3 on MRI does not demonstrate appreciable abnormal uptake. IMPRESSION: Abnormal signal at C3 from MRI demonstrates no appreciable increased uptake it is felt to be likely benign. Dictated by: Kesha Celis M.D. on 01/06/2023 at 14:38 Approved by: Kesha Celis M.D. on 01/06/2023 at 14:49
== END ==
LOC: NUCM 10:15
PROVIDERS: PCP Family Medicine; Referring Provider Physician Assistant; Visit Provider Physician Assistant
DX: M54.2 Cervicalgia (principal); R93.7 Abnormal findings on diagnostic imaging of other parts of musculoskeletal system
CPT/HCPCS: 78306; A9503

== ENCOUNTER → 2023-07-26 09:54 | Outpatient (CLI) | payer MEDICARE, OTHER, SELFPAY ==
[2022-02-18 00:29] VITALS: BMI 30.7
[2023-07-26 19:40] LABS: Erythrocyte Sedimentation Rate 7 MM/HR (0-15)
[2023-07-26 19:41] LABS: Cholesterol 207 mg/dL (140-199); HDL Cholesterol 39 mg/dL (40-60); LDL Cholesterol Calculated 148 mg/dL (<100); Triglycerides 100 mg/dL (35-150)
== END ==
PROVIDERS: PCP Family Medicine; Visit Provider Physician Assistant
DX: N52.9 Male erectile dysfunction, unspecified (principal); R31.21 Asymptomatic microscopic hematuria; R07.89 Other chest pain; R97.20 Elevated prostate specific antigen [PSA]; E78.2 Mixed hyperlipidemia
CPT/HCPCS: 80061; 84153; 85651

== ENCOUNTER → 2023-10-14 08:51 | Outpatient (CLI) | payer MEDICARE, OTHER, SELFPAY ==
[2022-02-18 00:29] VITALS: BMI 30.7
--- NOTE | 2023-10-14 08:54 | DI.US.S_ITS ---
PROCEDURE: US ABDOMEN LIMITED INDICATIONS: L ANTERIO/LATERAL WALL CHEST PAIN/MASS?LIPOMA? TECHNIQUE: Real-time scanning was performed of the abdominal and retroperitoneal organs, with image documentation. COMPARISON: None. FINDINGS: Spleen: Spleen is normal in size and homogeneous in echotexture. Kidneys: The left kidney measures 9.6 cm long. No hydronephrosis or nephrolithiasis. No solid masses. Miscellaneous: No sonographic abnormality in the area indicated by the patient (superior to the spleen). No free abdominal fluid. IMPRESSION: No sonographic abnormality where palpated. The left kidney and spleen have a normal sonographic appearance. If further characterization is warranted, contrast enhanced CT of the abdomen and pelvis could be used. Dictated by: Lucrecia Martino M.D. on 10/14/2023 at 11:13 Approved by: Lucrecia Martino M.D. on 10/14/2023 at 11:15
== END ==
PROVIDERS: PCP Family Medicine; Referring Provider Physician Assistant; Visit Provider Physician Assistant
DX: R07.89 Other chest pain (principal); R22.2 Localized swelling, mass and lump, trunk
CPT/HCPCS: 76705

== ENCOUNTER → 2023-10-20 13:22 | Outpatient (CLI) | payer MEDICARE, OTHER, SELFPAY ==
[2022-02-18 00:29] VITALS: BMI 30.7
[2023-10-20 19:49] LABS: Alanine Aminotransferase 18 IU/L (<50); Albumin 3.7 g/dL (3.5-5.0); Albumin Globulin Ratio 1.3 (1.0-2.8); Alkaline Phosphatase 71 U/L (38-126); Aspartate Aminotransferase 25 IU/L (17-59); BUN Creatinine Ratio 18.2 (6-22); Bilirubin Total 0.7 mg/dL (0.2-1.3); Blood Urea Nitrogen 26 mg/dL (9-20); Calcium 9.5 mg/dL (8.4-10.2); Carbon Dioxide 28 mmol/L (22-32); Chloride 104 mmol/L (98-107); Estimated Glomerular Filt Rate 52 mL/min (>60); Globulin 2.9 g/dL (1.7-4.1); Glucose 98 mg/dL (80-110); HEMOLYSIS < 15 (0-50); Potassium 4.4 mmol/L (3.4-5.1); Sodium 138 mmol/L (137-145); Total Protein 6.6 g/dL (6.3-8.2)
[2023-10-20 20:19] LABS: Prostate Specific Antigen Scrn 4.76 ng/mL (0.1-4.0)
== END ==
PROVIDERS: PCP Family Medicine; Visit Provider Physician Assistant
DX: Z12.5 Encounter for screening for malignant neoplasm of prostate (principal); R97.20 Elevated prostate specific antigen [PSA]; Z01.812 Encounter for preprocedural laboratory examination
CPT/HCPCS: 80053; G0103

== ENCOUNTER → 2023-10-29 09:32 | Outpatient (CLI) | payer MEDICARE, OTHER, SELFPAY ==
[2022-02-18 00:29] VITALS: BMI 30.7
--- NOTE | 2023-10-29 09:34 | DI.CT.S_ITS ---
PROCEDURE: CT CHEST ABD PEL W CON INDICATIONS: worsening left lateral chest, upper abd pain. TECHNIQUE: After the administration of intravenous contrast, 5 mm thick sections acquired from the lung apices to the symphysis. 5 mm coronal and sagittal reformats were performed, with additional 7 mm MIP reformats through the lungs. For radiation dose reduction, the following was used: automated exposure control, adjustment of mA and/or kV according to patient size. COMPARISON: None. FINDINGS: Image quality: Excellent. CHEST: Lower Neck: No enlarged lymph nodes. Thyroid: No thyroid nodules which require sonographic follow up, per consensus guidelines. Axillae: No enlarged lymph nodes. Chest Wall: Unremarkable. Lungs and Pleura: No pneumothorax or pleural effusions. No consolidation or suspicious nodules. Atelectasis in the dependent portions of the lungs. Heart: Heart size is normal. No pericardial effusion. Thoracic Vessels: The aorta and pulmonary arteries demonstrate normal size. Mediastinum and Leida: No enlarged lymph nodes. Esophagus: No wall thickening. No hiatal hernia. ABDOMEN: Liver: No solid mass. Gallbladder: No radiopaque gallstones or wall thickening. Biliary ducts: No biliary dilation. Pancreas: No ductal dilation. Spleen: Size is within normal limits. Adrenal Glands: No adrenal nodules. Kidneys and Ureters: No hydronephrosis. No solid mass. No complex renal cystic lesion which requires follow up. Stomach and Bowel: Normal colonic caliber, without significant wall thickening. Moderate amount of stool throughout the colon. The appendix is normal. Peritoneum: No abnormal intraperitoneal fluid. No free air. Ventral Wall: No hernia. Abdominal Nodes: No retroperitoneal or mesenteric adenopathy by size criteria. Vessels: Aorta and inferior vena cava are normal in size. PELVIS: Pelvic Organs: Prostate is enlarged. Bladder: Unremarkable. Pelvic Nodes: No enlarged lymph nodes. Miscellaneous: No inguinal hernias are seen. Bones: Spine degenerative disc disease and facet arthropathy. Mild convex left scoliosis of the lumbar spine. IMPRESSION: No acute disease process. Severe prostatomegaly. Moderate colonic fecal loading. Dictated by: Laurel Mccoy MD, PhD on 10/29/2023 at 11:07 Approved by: Laurel Mccoy MD, PhD on 10/29/2023 at 11:11
== END ==
LOC: CT 09:33
PROVIDERS: PCP Family Medicine; Referring Provider Physician Assistant; Visit Provider Physician Assistant
DX: R07.89 Other chest pain (principal); N40.0 Benign prostatic hyperplasia without lower urinary tract symptoms; R10.12 Left upper quadrant pain
CPT/HCPCS: 71260; 74177

== ENCOUNTER 2023-12-11 09:18 | Emergency (ER) | payer MEDICARE, OTHER, SELFPAY ==
[2022-02-18 00:29] VITALS: BMI 30.7
--- NOTE | 2023-12-11 09:24 | ED_ITS ---
HPI - General Adult General Chief complaint: Skin/Abscess/Foreign Body Stated complaint: Abcess on R/shoulder Time Seen by Provider: 12/11/23 09:24 History of Present Illness HPI narrative: 73-year-old male with history of BPH, cervical stenosis of spine, hyperlipidemia, seborrhea, hypertension presents with concern for upper right back lump. History clarified from triage. Patient states for about 1 year, he has had slowly growing soft, rubbery, nontender lump to upper right back. In the last few days, it got larger and is tender now. He has some pain at the lump when he moves his shoulder, though his shoulder does not hurt. He is not taking pain medications for this. No blood thinners. No trauma, fevers or chills, rash, chest pain, shortness of breath, any other back pain, abdominal or flank pain. No neck or head pain. He denies prior surgeries to this area. He denies recent antibiotics or antibiotic allergies. He overall feels well. Family at bedside corroborating. Patient has had massage and tried Epsom salts recently which he thinks may have irritated this. Related Data Previous Rx's Medication Instructions Recorded triamcinolone acetonide 0.1 % 1 applic topical DAILY #30 grams 10/28/22 topical cream sodium sul 1.479 gram-potas ch See Rx Instructions PO PER PKG DIR 11/12/22 0.188 gram-magnes sul 0.225 gram #24 tabs tablet (Sutab) cyclobenzaprine 5 mg tablet 5 mg PO TID #30 tabs 02/16/23 gabapentin 300 mg capsule 300 mg PO TID nerve pain #30 caps 02/16/23 meloxicam 7.5 mg tablet 7.5 mg PO DAILY #30 tabs 02/18/23 tamsulosin 0.4 mg capsule 0.4 mg PO BEDTIME #90 caps 03/17/23 amlodipine 2.5 mg tablet 2.5 mg PO BID #180 tabs 06/18/23 doxycycline hyclate 100 mg capsule 100 mg PO BID 5 days #10 caps 12/11/23 Allergies Allergy/AdvReac Type Severity Reaction Status Date / Time No Known Drug Allergies Allergy Verified 07/14/23 14:40 Review of Systems Review of Systems Narrative: Constitutional: no fever, no chills Eyes: no visual disturbance, no discharge Ears, Nose, Mouth, Throat: no rhinorrhea, no sore throat Cardiovascular: no chest pain, no palpitations Respiratory: no cough, no shortness of breath Gastrointestinal: no abdominal pain, no vomiting, no diarrhea Genitourinary: no dysuria, no hematuria Musculoskeletal: no back pain, no neck stiffness Skin: no rash, no wound Neurological: no focal weakness, no focal numbness Patient History Medical History (Updated 12/11/23 @ 09:38 by Zackary Velasquez MD) Cervical stenosis of spine Chicken pox Elevated PSA Erectile dysfunction BPH w urinary obs/LUTS Family History Father Congestive heart failure Mother Stroke Social History household members: spouse and children Smoking Status: Never smoker alcohol intake: never Smoking Status: Never smoker alcohol intake frequency: 0-2 drinks per day Substance Use Type: does not use Exam Narrative Exam Narrative: Const: no acute distress, non toxic appearing; calm, conversant, pleasant Eyes: PERRLA, EOMI ENT: mucous membranes moist Neck: supple, non-tender Resp: no respiratory distress, clear to auscultation bilaterally Card: regular rate and rhythm, no murmurs Abd: non tender diffusely, no rigidity or rebound or guarding Back: no T or L spine tenderness, no CVA tenderness bilaterally; there is about a 0.75 in diameter soft, rubbery, mild tender lump to left upper back not overlying bone, without fluctuance or induration or erythema Extrem: no deformities, no swelling bilateral lower extremities; no pain at shoulders with active range of motion; no swelling or rash Neuro: ANOx4, cotton converter grossly intact, grossly intact sensation and strength all extremities Skin: no rash, warm and dry Initial Vital Signs Initial Vital Signs: Vital Signs Temperature 97.8 F 12/11/23 09:32 Pulse Rate 87 12/11/23 09:32 Respiratory Rate 18 12/11/23 09:32 Blood Pressure 165/84 H 12/11/23 09:32 Pulse Oximetry 98 12/11/23 09:32 Oxygen Delivery Method Room Air 12/11/23 09:32 Course Course Course Narrative: This presentation is highly suggestive of lipoma, possibly with recent irritation from massage or baths, but currently with low concern for developing abscess or cellulitis. No other evidence of infection in this very well- appearing, comfortable, afebrile, fully neurovascularly intact patient with no other new symptoms. It is still possible this is an early developing phlegmon or with early developing surrounding cellulitis, though I think it is less likely. Patient has good health her literacy and is able to have shared decision making with me. We discussed that I will prescribe a 5 day course of 100 mg p.o. doxycycline b.i.d., however he will not start this unless symptoms do not improve or start to worsen in the next few 2-3 days. He understands the need for follow-up regardless, and to follow up immediately if he worsens; if he does not and improves, I did still recommend he speak with his primary care doctor about dermatology referral, given high likelihood of lipoma. Blood pressure is elevated here, however without clinical evidence of hypertensive emergency. Discussed with patient for follow-up. Patient is stable, comfortable, with no other new concerns. Repeat exam and vital signs reassuring. Questions answered. Plan reviewed. Patient discharged in stable condition. Vital Signs Vital signs: Vital Signs - 8 hr 12/11/23 09:32 Temperature 97.8 F Pulse Rate 87 Respiratory Rate 18 Blood Pressure 165/84 H Pulse Oximetry 98 Oxygen Delivery Method Room Air Discharge Plan Departure Patient Disposition: Home Clinical Impression: Lipoma Instructions: Lipoma Activity Restrictions/Additional Instructions: It was a pleasure taking care of you today. It is important to fully read and understand the below. Please ask us if you have any questions. We think the most likely cause of your symptoms is a lipoma. We discussed and decided together not to initiate antibiotic treatment. However, if you do not improve in the next few days, or if you worsen, please start the doxycycline I have prescribed then immediately seek medical care. Regardless, please see your primary doctor within 5 days to be reassessed and discussed dermatology referral. Your blood pressure was elevated here. Please follow-up with your primary care doctor regarding this and get it reassessed. No tests or assessments are perfect, and your condition could currency exchange specialist time. If your symptoms change or worsen, it is very important you immediately seek medical care. If you have any new or worsening pain, swelling, redness, rash, fever, numbness, weakness, bleeding, difficulty using your body, or anything else that concerns you, please immediately seek medical care. If you have been prescribed any medications: please read the drug package inserts on how to properly use the medication and any potential side effects. If you had labs (blood tests) or imaging (CT scan or x-rays) done during your visit: please follow up on the results of these with your primary care doctor, as discussed. In addition, please know the results we received today may be preliminary. Our usual practice is to follow up on tests within a few days of a patient's discharge from the Emergency Department and notify you of any changes. These may lead to changes to your treatment plan. However, the best way to obtain and interpret these test results is through your Primary Care Provider. If you need to update your contact information, please stop by the vest front presser and alert the Registration personnel before you leave the Emergency Department. Thank you for the opportunity to participate in your healthcare. We are always here and happy to see you in the future. Prescriptions: New doxycycline hyclate 100 mg capsule 100 mg PO BID 5 Days Qty: 10 0RF No Action Sutab 1.479-0.188- 0.225 gram tablet See Rx Instructions PO PER PKG DIR Qty: 24 0RF Rx Instructions: Take as directed by Physician gabapentin 300 mg capsule 300 mg PO TID Qty: 30 0RF cyclobenzaprine 5 mg tablet 5 mg PO TID Qty: 30 0RF tamsulosin 0.4 mg capsule 0.4 mg PO BEDTIME Qty: 90 3RF amlodipine 2.5 mg tablet 2.5 mg PO BID Qty: 180 3RF triamcinolone acetonide 0.1 % cream 1 applic topical DAILY Qty: 30 0RF meloxicam 7.5 mg tablet 7.5 mg PO DAILY Qty: 30 2RF Referrals: Live Garza MD [Primary Care Provider] - Stand Alone Forms: Patient Portal/API
[2023-12-11 09:32] VITALS: BP 165/84; PULSE 87; RESP 18; TEMP 36.6; O2SAT 98; BMI 30.7
== END 2023-12-11 09:41 | disposition home or self-care (01) ==
PROVIDERS: Emergency Provider Emergency Medicine; PCP Family Medicine
DX: D17.39 Benign lipomatous neoplasm of skin and subcutaneous tissue of other sites (principal)
CPT/HCPCS: 99281

== ENCOUNTER → 2024-01-22 08:31 | Outpatient (CLI) | payer MEDICARE, OTHER, SELFPAY ==
[2022-02-18 00:29] VITALS: BMI 30.7
--- NOTE | 2024-01-22 08:32 | DI.MRI.S_ITS ---
PROCEDURE: MR PELVIC PROSTATE PROTOCOL INDICATIONS: Elevated and rising PSA TECHNIQUE: Coronal HASTE, axial T1 FSE with fat saturation, 3-plane nonbreath-hold T2 FSE. After the administration of contrast, dynamic axial, delayed axial and coronal VIBE or 2-D FLASH with fat saturation through the pelvis. Diffusion weighted imaging and ADC was performed. COMPARISON: [facility], MR, MR LUMBAR SPINE WO CON, 06/06/2021, 15:43. [facility], CT, CT CHEST ABD PEL W CON, 10/29/2023, 10:55. FINDINGS: Image quality: Diffusion weighted and dynamic contrast enhanced images are diagnostic. Prostate: Gland size is 7.0 x 6.5 x 5.1 cm; ellipsoid gland volume is 121 mL. Given the PSA of 4.76, the PSA density is 0.04. There is transition zone nodular hypertrophy including an extruded nodule at the left posterior base towards the seminal vesicles. There are no focal lesions of significantly decreased T2 signal or restricted diffusion in the prostate gland. Genitourinary system: There is high T1 signal throughout the left seminal vesicles. Bladder wall thickness is normal. Distal ureters are non distended. Bowel and peritoneum: No pathologic free pelvic fluid. Inferior colon and small bowel loops are normal in caliber. Nodes and vessels: No pelvic or inguinal adenopathy by size criteria. Iliac vessels are normal in caliber. Soft tissues: No inguinal hernias. Bones: There is a mass in the left posterior iliac bone with precontrast high T1, and centrally high T2 signal measuring 2.[address] from 10/29/23, there is destruction of the medial cortex of the bone due to the lesion. Marrow signal is otherwise normal. IMPRESSION: Prostatomegaly without PI-RADS four or PI-RADS five lesion. There is an enlarging left posterior iliac bone mass, enlarged since 10/29/23 suspicious for metastatic disease. This is likely amenable to percutaneous biopsy. No adenopathy. Dictated by: Yareli Connors M.D. on 01/24/2024 at 8:23 Approved by: Yareli Connors M.D. on 01/24/2024 at 8:43
== END ==
LOC: MRI 08:32
PROVIDERS: PCP Family Medicine; Referring Provider Urology; Visit Provider Urology
DX: N40.0 Benign prostatic hyperplasia without lower urinary tract symptoms (principal); M89.9 Disorder of bone, unspecified; R97.20 Elevated prostate specific antigen [PSA]
CPT/HCPCS: 72197; A9579

== ENCOUNTER → 2024-02-01 08:42 | Outpatient (CLI) | payer MEDICARE, OTHER, SELFPAY ==
[2022-02-18 00:29] VITALS: BMI 30.7
--- NOTE | 2024-02-01 08:43 | DI.NM.S_ITS ---
PROCEDURE: IN BONE SCAN WHOLE BODY RADIOPHARMACEUTICAL: 21.5 mCi Tc-99m MDP IV. INDICATIONS: Pelvic bone lesion concerning for metastasis TECHNIQUE: Delayed whole-body scintigrams were obtained approximately 3-4 hours after intravenous injection of radiotracer. Anterior and posterior views were acquired from vertex to feet. COMPARISON: [facility], MR, MR PELVIC PROSTATE PROTOCOL, 01/22/2024, 8:50. [facility], CT, CT CHEST ABD PEL W CON, 10/29/2023, 10:55. [place], [place], [place] BONE SCAN WHOLE BODY, 01/06/2023, 13:46. FINDINGS: Focus of radiotracer uptake in the left posterior 10th rib, with possible lucency noted in the left 10th rib on comparison CT. Focus of radiotracer uptake in the lateral left 7th rib, with corresponding expansile bony lesion on CT. Focus of radiotracer uptake in the posterior right 4th rib, with corresponding lucency on comparison CT. No radiotracer uptake in the left posterior pelvic bone. Degenerative uptake in the acromioclavicular joints, knees, ankles and right foot. IMPRESSION: Radiotracer uptake in the ribs, with corresponding lucent lesions. Findings are concerning for metastatic disease of uncertain etiology. Prostate not likely given lucent metastatic disease. Dictated by: Sourav Nascimento M.D. on 02/01/2024 at 15:36 Approved by: Sourav Nascimento M.D. on 02/01/2024 at 15:44
== END ==
PROVIDERS: PCP Family Medicine; Referring Provider Urology; Visit Provider Urology
DX: M89.9 Disorder of bone, unspecified (principal)
CPT/HCPCS: 78306; A9503

== ENCOUNTER → 2024-02-08 03:00 | Outpatient (CLI) | payer MEDICARE, OTHER, SELFPAY ==
[2022-02-18 00:29] VITALS: BMI 30.7
== END ==
PROVIDERS: PCP Family Medicine; Visit Provider Physician Assistant
DX: Z12.11 Encounter for screening for malignant neoplasm of colon (principal)
CPT/HCPCS: 82274

== ENCOUNTER → 2024-02-17 11:54 | Outpatient (CLI) | payer MEDICARE, OTHER, SELFPAY ==
[2024-02-09 14:04] VITALS: BMI 30.7
[2024-02-17 19:51] LABS: INR 1.1 (0.9-1.3); Prothrombin Time 12.1 SECONDS (9.4-12.5)
[2024-02-17 20:03] LABS: Platelet Count 220 X10^3/uL (150-400)
== END ==
PROVIDERS: PCP Family Medicine; Visit Provider Family Medicine
DX: R94.8 Abnormal results of function studies of other organs and systems (principal)
CPT/HCPCS: 85049; 85610

== ENCOUNTER 2024-02-22 07:15 | Day surgery (SDC) | payer MEDICARE, OTHER, SELFPAY ==
[2024-02-09 14:04] VITALS: BMI 30.7
--- NOTE | 2024-02-22 07:18 | DI.CT.S_ITS ---
PROCEDURE: CT BIOPSY BONE DEEP INDICATIONS: ABNORMAL MRI PROSTATE AND RIBS NOTE: The patient is scheduled to have a biopsy of the mass of the left iliac bone. The patient prior pelvic MRI dated 10/29/2023, CT chest, abdomen and pelvis dated 10/29/2023 and whole body bone scan dated 02/01/2024 were reviewed. There is an enhancing mass in the left iliac bone adjacent to the sacroiliac joint. The patient also had a bone scan dated 02/01/2024, which showed 3 rib lesions with increased uptake, involving the posterior right 3rd rib, the posterior left 10th rib and the anterior lateral aspect of the left 7th rib. The left iliac lesion is occult on bone scan. The patient thought that he was having a rib biopsy rather than iliac biopsy. The rib lesions are too small to be biopsied for concern of pneumothorax. After discussing with the patient, the biopsy was postponed. I was unable to reach Dr. Garza at the time of biopsy (Dr. Garza was off). I discussed the case with Dr. Garza today. IMPRESSION: CT-guided biopsy was postpone. Dr. Garza will discuss with the patient and reschedule the biopsy. Dictated by: Tiago Wilkinson M.D. on 02/22/2024 at 11:09 Approved by: Tiago Wilkinson M.D. on 02/23/2024 at 17:55
[2024-02-22 08:08] VITALS: BMI 31.2
[2024-02-22 10:04] LABS: Hematocrit 40.6 % (41-53)
--- NOTE | 2024-02-22 11:22 | SUR.PHASEII ---
Patient returns to pre-op area after cancellation of procedure from the [facility] radiologist. Patient was informed that the radiologist was unable to do a rib biopsy and would need to contact and reschedule for a possible biopsy at another hospital.
== END 2024-02-22 11:23 | disposition home or self-care (01) ==
PROVIDERS: Specialist; PCP Family Medicine; Referring Provider Family Medicine; Visit Provider Family Medicine
DX: R94.8 Abnormal results of function studies of other organs and systems (principal); M89.9 Disorder of bone, unspecified
CPT/HCPCS: 20225; 77012; 85014

== ENCOUNTER → 2024-03-13 10:21 | Outpatient (CLI) | payer MEDICARE, OTHER, SELFPAY ==
[2024-02-09 14:04] VITALS: BMI 30.7
[2024-03-13 20:14] LABS: INR 1.1 (0.9-1.3); Prothrombin Time 12.4 SECONDS (9.4-12.5)
[2024-03-13 20:18] LABS: Hemoglobin 14.7 g/dL (13.5-17.5)
== END ==
PROVIDERS: PCP Family Medicine; Visit Provider Family Medicine
DX: M89.9 Disorder of bone, unspecified (principal); R94.8 Abnormal results of function studies of other organs and systems
CPT/HCPCS: 85014; 85018; 85610

== ENCOUNTER → 2025-01-02 13:03 | Outpatient (CLI) | payer MEDICARE, OTHER, SELFPAY ==
[2024-02-09 14:04] VITALS: BMI 30.7
[2025-01-04 08:36] LABS: PSA Free % 38.3 % (.)
== END ==
PROVIDERS: PCP Family Medicine; Visit Provider Urology
DX: R97.20 Elevated prostate specific antigen [PSA] (principal)
CPT/HCPCS: 84153; 84154

== ENCOUNTER → 2025-01-13 10:33 | Outpatient (CLI) | payer MEDICARE, OTHER, SELFPAY ==
[2024-02-09 14:04] VITALS: BMI 30.7
--- NOTE | 2025-01-13 10:35 | DI.MRI.S_ITS ---
PROCEDURE: MR LUMBAR SPINE WO CON INDICATIONS: Low back pain. Low back numbness. History spine surgery TECHNIQUE: Noncontrast sagittal T1 spin echo and T2 fast echo, sagittal STIR, and T2 fast spin echo through the lumbar spine. In cases with scoliosis, additional coronal T2 fast spin echo may be performed. COMPARISON: [facility], CT, CT CHEST ABD PEL W CON, 10/29/2023, 10:55. [facility], MR, MR LUMBAR SPINE WO CON, 06/06/2021, 15:43. FINDINGS: Alignment and Curvature: Convex left lumbar scoliosis. Bone Marrow: 2.1 cm lytic lesion noted in the right aspect of the L1 vertebral body adjacent neovascular blood supply Similar left iliac lytic lesion Spinal Cord: Conus medullaris terminates at the L1 level. Visualized cord demonstrates normal signal and size. Paraspinous Soft Tissues: No paravertebral masses. T12-L1: No central or foraminal stenosis L1-L2: No central or foraminal stenosis L2-L3: Disc bulge and arthropathy. Moderate central stenosis. Moderate bilateral foraminal stenosis greater on the right L3-L4: Disc bulge and arthropathy combines with dorsal epidural fat to result in severe central stenosis. Moderate left and moderate right foraminal stenosis L4-L5: Disc bulge and arthropathy. Mild central stenosis. Moderate bilateral foraminal stenosis L5-S1: Arthropathy. 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 L1 lesion appears new from the prior exams Multilevel degenerative disc disease and arthropathy results in varying degrees of central and foraminal stenosis including moderate L2-3 and severe L3-4 central stenosis Approved by: Rojelio Gray M.D. on 01/15/2025 at 18:37
== END ==
PROVIDERS: PCP Family Medicine; Referring Provider Physician Assistant; Visit Provider Physician Assistant
DX: C79.51 Secondary malignant neoplasm of bone (principal); C80.1 Malignant (primary) neoplasm, unspecified; M51.360 Other intervertebral disc degeneration, lumbar region with discogenic back pain only; M47.816 Spondylosis without myelopathy or radiculopathy, lumbar region; M47.817 Spondylosis without myelopathy or radiculopathy, lumbosacral region; M48.061 Spinal stenosis, lumbar region without neurogenic claudication; M48.07 Spinal stenosis, lumbosacral region
CPT/HCPCS: 72148